=== PATIENT | female | born 1985 | race Two or more races ===

== ENCOUNTER 2018-07-31 14:44 | Emergency (ER) | payer MEDICAID ==
[~2018-07-31] VITALS: Ht 167.6 cm; Wt 54.4 kg
[2018-07-31 15:08] VITALS: BP 149/94
[2018-07-31] MEDS ORDERED: ALPRAZolam 0.5 MG TAB PO ONE (16:30)
== END 2018-07-31 17:23 | disposition home or self-care (01) ==
LOC: ER 14:44
DX: F41.1 Generalized anxiety disorder (principal)